=== PATIENT | female | born 1985 | race Caucasian/White ===

== ENCOUNTER → 2025-04-13 | Outpatient (CLI) | payer MEDICAID, SELFPAY ==
--- NOTE | 2025-04-13 11:15 | XR_ITS ---
Examination: Abdomen sonogram, complete Date and time of exam: April 13, 2025, 10:25 AM INDICATIONS: Mid abdominal pain beginning 6 months ago, history 6 hernia repairs. Technique: Multiple real-time grayscale transabdominal sonographic images of the abdomen have been obtained. Findings: Absent gallbladder Normal common bile duct 0.3 cm Pancreatic head 1.9 cm Aorta not enlarged. Liver 13.5 cm fatty infiltration no focal liver lesions Normal hepatopedal portal venous flow Patent IVC Right kidney 11.1 cm renal cortex 2.0 cm Left kidney 11.7 cm cortex 2.0 cm Mild renal scar formation Spleen 4.4 cm IMPRESSION: Normal common bile duct Liver normal size fatty infiltration Mild bilateral renal scar formation
== END | disposition home or self-care (01) ==
LOC: CDIM 04-19 08:05
PROVIDERS: PCP Nurse Practitioner; Referring Provider Nurse Practitioner; Visit Provider Nurse Practitioner
DX: N28.89 Other specified disorders of kidney and ureter (principal); Z87.19 Personal history of other diseases of the digestive system
CPT/HCPCS: 76700

== ENCOUNTER → 2025-07-03 | Outpatient (CLI) | payer MEDICAID, SELFPAY ==
[2025-07-03 08:39] LABS: HCG Qualitative,Urine Negative
--- NOTE | 2025-07-03 09:00 | XR_ITS ---
Examination: CT abdomen with intravenous contrast CT pelvis with intravenous contrast 2-D coronal reconstructions 2-D sagittal reconstructions Date and time of exam: July 03, 2025, 0914 hours INDICATIONS: Mid abdominal pain several years. CTDI: vol (mGy) 11.7 DLP: (mGycm) 704 Technique: Multiple axial sections of the abdomen and pelvis have been obtained. 64 slice high-resolution scanner used. 3 mm axial sections have been obtained, post intravenous injection 60 cc [id number] 2-D sagittal, coronal reconstructions obtained. Low dose protocols were performed. One or more of the following dose reduction techniques were used; automated exposure control, adjustment of the mA and/or KV according to patient size, use of iterative reconstruction technique. Findings: Right lobe liver lesion, 25 mm Splenomegaly 14 cm Absent gallbladder No pancreatic or adrenal mass No renal or ureteral calculi, no hydronephrosis Aorta normal size No bowel obstruction No pericecal inflammatory change No pelvic mass Contracted urinary bladder Mild osteopenia IMPRESSION: 25 mm right lobe liver lesion, recommend MRI abdomen liver follow-up pre and postcontrast to assess this liver lesion Splenomegaly No renal or ureteral calculi No CT findings of appendicitis or bowel obstruction no visualized liver lesion
== END | disposition home or self-care (01) ==
LOC: SCAT 08:11
DX: K76.9 Liver disease, unspecified (principal); R16.1 Splenomegaly, not elsewhere classified; Z32.00 Encounter for pregnancy test, result unknown
CPT/HCPCS: 74177; 81025; A4649; Q9967

== ENCOUNTER → 2025-07-09 | Outpatient (CLI) | payer MEDICAID, SELFPAY ==
--- NOTE | 2025-07-09 14:48 | XR_ITS ---
Examination: MRI lumbar spine without contrast Date and time of exam: July 09, 2025, 1728 hours INDICATIONS: Low back pain 2 years post injury, radiating down the left leg Technique: Multiple MRI axial and sagittal sections lumbar spine. Sagittal T2-weighted images, TR 3500, TE 118 T1 weighted transverse sections, TR 688 T8.5, T2-weighted sagittal sections T1 weighted sagittal sections TR 621, TE 30 T2 axial sections, TR 4, 190, TE 84. Findings: Satisfactory alignment lumbar vertebral bodies. No lumbar fracture. Normal marrow signal lumbar vertebral bodies Disc desiccation L5-S1 Mild disc narrowing posteriorly L5-S1 No spondylolisthesis L5-S1 no disc protrusion L4-L5 small 2 to 3 mm bilateral foraminal disc bulges no ganglionic compression L3-L4 no disc protrusion L2-L3 no disc protrusion L1-L2 no disc protrusion IMPRESSION: No lumbar fracture L4-L5 small 2 to 3 mm bilateral foraminal disc bulges no ganglionic compression
== END | disposition home or self-care (01) ==
LOC: SMRI 14:39
DX: M51.360 Other intervertebral disc degeneration, lumbar region with discogenic back pain only (principal)
CPT/HCPCS: 72148